=== PATIENT | female | born 1950 | race Caucasian/White ===

== ENCOUNTER → 2017-10-20 | Outpatient (CLI) | payer OTHER | LOC: FIMAGING 10:49 | DX: M81.0 Age-related osteoporosis without current pathological fracture (principal) ==

== ENCOUNTER 2018-02-03 07:57 | Observation (INO) | payer OTHER ==
[~2018-02-03 07:57] MED LIST: cefOXitin SODIUM 2 GM in NS 100 ML IV ONE
[2018-02-03] MEDS ORDERED: LR 1,000 ML IV ONE (08:36)
[2018-02-03] MEDS ORDERED: LIDOCAINE 1% 2 ML INJ ID PRN (08:36)
[2018-02-03 08:55] LABS: PLATELET COUNT 267 10^3/uL (150-400)
[2018-02-03] MEDS ORDERED: BUPIVACAINE 0.5% 30 ML SDV ONE (09:27)
[2018-02-03] MEDS ORDERED: ceFAZolin 1 GM/5 ML SYR ONE (09:27)
[2018-02-03] MEDS ORDERED: HEPARIN 1000 UNIT/1 ML MDV ONE (09:27)
--- NOTE | 2018-02-03 10:31 | PDHPUP ---
History & Physical Update H&P update statement: This history and physical update is based on an assessment of the patient which was completed after admission or registration (within 24 hours), but prior to the surgery/procedure. H&P update: H&P reviewed & patient examined, no change in patient's condition since H&P completed
--- NOTE | 2018-02-03 12:00 | PDANEPAE ---
ANE History of Present Illness cholelithiasis s/f lap nida ANE Past Medical History - Cardiovascular History Hx Hypertension: No Hx Arrhythmias: No Hx Chest Pain: No Hx Coronary Artery / Peripheral Vascular Disease: No Hx CHF / Valvular Disease: No Hx Palpitations: No - Pulmonary History Hx COPD: No Hx Asthma/Reactive Airway Disease: No Hx Recent Upper Respiratory Infection: No Hx Oxygen in Use at Home: No Hx Sleep Apnea: No Sleep Apnea Screening Result - Last Documented: Negative - Neurologic History Hx Cerebrovascular Accident: No Hx Seizures: No Hx Dementia: No - Endocrine History Hx Diabetes: No - Renal History Hx Renal Disorders: No - Liver History Hx Hepatic Disorders: No Hepatic History Comment: RUQ pain r/t gall stones - Neurological & Psychiatric Hx Hx Neurological and Psychiatric Disorders: No - Cancer History Hx Cancer: No - Congenital Disorder History Hx Congenital Disorders: No - GI History Hx Gastrointestinal Disorders: Yes Gastrointestinal History Comment: irritable bowel. hx of luz's esophagus prior to hiatal hernia being repaired - Other Health History Other Health History: osteoporosis. right rotator cuff tear - Chronic Pain History Chronic Pain: Yes (back) - Surgical History Prior Surgeries: kyphoplasty, T7-T9, 11/2017. fundoplication for hiatal hernia , 04/2017. open abdominal surgery in [place] w/appendectomy ANE Review of Systems Review of Systems: - Exercise capacity METS (RN): 5 METS ANE Patient History - Allergies Allergies/Adverse Reactions: codeine Allergy (Verified 02/03/18 08:48) nausea - Home Medications Home medications: home medication list seen and reviewed Home Medications: Cyclobenzaprine [Flexeril 10 MG (*)] PRN 02/01/18 [Last Taken Unknown] Multi-Opal Liquid 02/01/18 [Last Taken 01/20/18] Tramadol HCl PRN 02/01/18 [Last Taken Unknown] - NPO status NPO Status: no food or drink >8 hours NPO Since - Liquids (Date): 02/02/18 NPO Since - Liquids (Time): 22:00 NPO Since - Solids (Date): 02/02/18 NPO Since - Solids (Time): 23:00 - Anes Hx Anes Hx: no prior problems - Smoking Hx Smoking Status: Never smoked - Alcohol Use Alcohol Use: Rarely - Family Anes Hx Family Anes Hx: none Family Hx Anesthesia Complications: none ANE Labs/Vital Signs - Labs Result Diagrams: 02/03/18 08:45 02/02/18 08:45 - Vital Signs Blood Pressure: 105/66 Heart Rate: 73 Respiratory Rate: 19 O2 Sat (%): 96 Height: 160.02 cm Weight: 58.967 kg ANE Physical Exam - Airway Neck exam: FROM Mallampati Score: Class 2 Mouth exam: normal dental/mouth exam - Pulmonary Pulmonary: no respiratory distress - Cardiovascular Cardiovascular: regular rate and rhythym - ASA Status ASA Status: II ANE Anesthesia Plan Anesthesia Plan: general endotracheal anesthesia
[2018-02-03] MEDS ORDERED: MIDAZOLAM 2 MG/2 ML VIAL IVP ONE ×2 (12:30→14:24)
[2018-02-03] MEDS ORDERED: MIDAZOLAM 2 MG/2 ML VIAL ONE (12:32)
[2018-02-03] MEDS ORDERED: IOTHALAMATE MEG (CONRAY) 50 ML VIAL IV ONE (12:33)
[2018-02-03] MEDS ORDERED: PROPOFOL/EMULSION 500 MG/50 ML BOTTLE IV ONE (12:37)
[2018-02-03] MEDS ORDERED: fentaNYL 100 MCG/2 ML INJ ONE ×4 (12:37→14:18)
[2018-02-03] MEDS ORDERED: ROCURONIUM 50 MG/5 ML VIAL ONE ×3 (12:38→12:42)
[2018-02-03] MEDS ORDERED: ONDANSETRON 4 MG/2 ML VIAL ONE (12:42)
[2018-02-03] MEDS ORDERED: LIDOCAINE 2% 100 MG/5 ML SYR ONE (12:42)
[2018-02-03] MEDS ORDERED: DEXAMETHASONE 4 MG/ML VIAL ONE ×2 (12:42)
[2018-02-03] MEDS ORDERED: ONDANSETRON 4 MG/2 ML VIAL IVP PRN (13:34)
[2018-02-03] MEDS ORDERED: NALOXONE HCL 0.4 MG/ML INJ IVP PRN (13:34)
[2018-02-03] MEDS ORDERED: SUGAMMADEX SODIUM 200 MG/2 ML VIAL IVP ONE (13:50)
--- NOTE | 2018-02-03 14:06 | POSTOPPROG ---
Post Op Note Date of Operation: 02/03/18 Surgeon: Patrick Mustafa [place] Reporter: [place] Anesthesiologist: Warm Anesthesia: GET(General Endotracheal) Pre-op Diagnosis: Cholelithiasis, epigastric pain, elevated LFTs Post-op Diagnosis: same, choledocholithiasis Indication: Pain Procedure: Lap nida with grams Findings: Numerous stones in gallbladder, many lodged in common duct Inf/Abcess present in the surg proc area at time of surgery?: No Depth: Organ Space EBL: Minimal Specimen(s): Gallbladder
[2018-02-03] MEDS ORDERED: HYDROmorphONE/DILAUDID 1 MG/ML INJ IVP PRN (14:07)
[2018-02-03] MEDS ORDERED: PROMETHAZINE HCL 25 MG/ML INJ ONE (14:18)
--- NOTE | 2018-02-03 14:20 | POSTANESTH ---
Post Anesthetic Evaluation Cardiovascular Status: Normal, Stable Respiratory Status: Normal, Stable Level of Consciousness/Mental Status: Can Participate in Eval Pain Control: Inadeq, Add Tx Required Nausea/Vomiting Control: Adequate, Prn Tx Ordered Complications Possibly Related to Anesthesia: None Noted
[2018-02-03] MEDS: fentaNYL 100 MCG/2 ML INJ IVP PRN ×3 (14:21→15:09)
[2018-02-03] MEDS: PROMETHAZINE HCL 25 MG/ML INJ IVP PRN ×2 (14:21→15:10)
[2018-02-03] MEDS ORDERED: oxyCODONE IR 5 MG TAB PO PRN (16:56)
[2018-02-03] MEDS ORDERED: ACETAMINOPHEN 650 MG/20.3 ML UDCUP PO PRN (16:57)
[2018-02-03] MEDS: KETOROLAC 15 MG/1 ML SDV IVP SCH (17:07)
[2018-02-03] MEDS: NS 1,000 ML IV SCH (17:07)
[2018-02-03] MEDS: ONDANSETRON 4 MG/2 ML VIAL IVP PRN (17:24)
--- NOTE | 2018-02-03 18:30 | SOAPPROG ---
GERONIMO Progress Note Assessment/Plan: Assessment: POSTOP LAP CHOLY AND CHOLANGIOGRAPHY/DOING WELL/AFEBRILE/NONICTERIC RISKS AND OPTIONS FULLY DISCUSSED Plan: WILL NEED ERCP IN THE A.M. 02/03/18 18:29 Objective: Vital Signs Temp Pulse Resp BP Pulse Ox 36.6 C 61 16 145/65 H 98 02/03/18 17:59 02/03/18 17:59 02/03/18 17:59 02/03/18 17:59 02/03/18 17:59 Laboratory Results 02/03/18 08:45 02/02/18 08:45 02/02/18 02/03/18 02/04/18 05:59 05:59 05:59 Intake Total 1750 Output Total 20 Balance 1730 ICD10 Worksheet Patient Problems: Problems Problem Status Onset Cholelithiasis with choledocholithiasis Acute - ICD10 Problem Qualifiers (1) Cholelithiasis with choledocholithiasis
[2018-02-04] MEDS: KETOROLAC 15 MG/1 ML SDV IVP SCH ×3 (01:19→12:58)
[2018-02-04] MEDS: ONDANSETRON 4 MG/2 ML VIAL IVP PRN ×2 (01:22→11:41)
[2018-02-04] MEDS: NS 1,000 ML IV SCH ×2 (01:26→14:30)
[2018-02-04] MEDS ORDERED: SIMETHICONE 80 MG TAB CHEW PO PRN (05:34)
--- NOTE | 2018-02-04 05:49 | GCON ---
CHIEF COMPLAINT: Choledocholithiasis. HISTORY OF PRESENT ILLNESS: I have been asked to see this very pleasant 67-year-old woman in consult ation by Dr. Mustafa for evaluation of choledocholithiasis and abnormal LFTs. The patient was admitted by Dr. Mustafa for a cholecystectomy. She presented with cholelithiasis and elevated liver function t ests. She had been having symptoms about 10 days prior to admission with burning epigastric pain quita t was triggered by eating. She reports that she ate a salad with caesar dressing. She had an additi onal attack that was extremely painful. She went on a clear liquid diet with some improvement in her symptoms. She had an abdominal ultrasound that revealed numerous gallstones as well as sludge. She was noted to have elevated liver function tests. She was admitted for surgery for cholecystectomy. She underwent cholecystectomy today with the finding of multiple choledocholithiasis on intraoperati ve cholangiogram. I am asked to see the patient for further evaluation. PAST MEDICAL HISTORY: Remarkable for hypertension, Mi's esophagus. PAST SURGICAL HISTORY: Remarkable for kyphoplasty, Gisell fundoplication, right shoulder surgery. MEDICATIONS: None prior to admission. SOCIAL HISTORY: Patient is a nonsmoker, is an occupational nurse at the [employer]. ALLERGIES: Codeine. FAMILY HISTORY: Negative as it pertains to chief complaint. REVIEW OF SYSTEMS: Negative for 10 systems other than mentioned in the HPI. PHYSICAL EXAM: VITAL SIGNS: 154/65, pulse of 63, respiratory rate 14, 95% sat on 2 L, 36.6. GENERA L: Very pleasant woman, in no acute distress, lying in bed. HEENT: Normocephalic, atraumatic. EOM I. NECK: Supple. No cervical adenopathy. No thyromegaly. Mucous membranes moist. LUNGS: Clear. CARDIAC: Normal S1, S2 without murmur. ABDOMEN: Benign, soft, slight tenderness to palpation in the epigastrium. No hepatosplenomegaly. EXTREMITIES: Without clubbing, cyanosis, edema. NEURO: N onfocal. SKIN: Warm, dry, intact. PSYCH: Alert and oriented x3 with normal affect. LABORATORY DATA: Hemoglobin of 12.2, hematocrit 36.3. Serum chemistries: Serum sodium 137, potassi um 4.4, chloride of 107, CO2 24, BUN of 11, creatinine 0.7, AST 103, ALT of 97. Fluoroscopy: Intrao perative fluoroscopy/cholangiogram. "Probable filling defects in the distal common bile duct suspici ous for choledocholithiasis." IMPRESSION: A 67-year-old woman with cholelithiasis status post cholecystectomy and associated abnor mal liver function tests and intraoperative cholangiogram consistent with choledocholithiasis. RECOMMENDATIONS: N.p.o. after midnight. Proceed with therapeutic ERCP, sphincterotomy, stone extrac tion tomorrow. We will follow with you. /[id number]/MODL
--- NOTE | 2018-02-04 09:39 | ASMTCMCOM ---
CM Note CM Note Notes: CM reviewed pt's chart for d/c planning. Pt is a 67 y/o female admitted due to having gallstones and an elevated LFT requiring her to have her gall bladder removed. Pt had a cholecystectomy and is recovering. Pt is employed as an occupational nurse at the [employer]. No CM needs identified. CM to follow for changes. D/C Plan: Anticipate independent. Date Signed: 02/04/2018 09:39 AM Electronically Signed By:Lucia Simms
[2018-02-04] MEDS ORDERED: IOTHALAMATE MEG (CONRAY) 50 ML VIAL IV ONE (09:40)
[2018-02-04] MEDS ORDERED: GLUCAGON HCL 1 MG VIAL ONE (09:40)
[2018-02-04] MEDS ORDERED: INDOMETHACIN 50 MG SUPP PR ONE (09:40)
[2018-02-04] MEDS ORDERED: REMIFENTANIL HCL 1 MG VIAL ONE (10:12)
[2018-02-04] MEDS ORDERED: PROPOFOL/EMULSION 500 MG/50 ML BOTTLE IV ONE (10:12)
[2018-02-04] MEDS ORDERED: DEXAMETHASONE 4 MG/ML VIAL ONE (10:12)
[2018-02-04] MEDS ORDERED: ROCURONIUM 50 MG/5 ML VIAL ONE (10:12)
[2018-02-04] MEDS ORDERED: MIDAZOLAM 2 MG/2 ML VIAL ONE (10:14)
--- NOTE | 2018-02-04 10:40 | SOAPPROG ---
SOAP Progress Note Assessment/Plan: Assessment: 67 y/o F s/p lap nida with grams. Found to have several stones lodged in common duct. She is on the schedule to have ERCP today with GI. S: Doing well overall. Pain controlled. Denies nausea/vomiting. Passing gas. Tolerated clears last night O: Alert Afebrile RRR No increased WOB Abdomen: soft, nontender, incisions cdi 02/04/18 10:38 Objective: Vital Signs Temp Pulse Resp BP Pulse Ox 36.8 C 80 12 142/71 H 97 02/04/18 08:00 02/04/18 08:00 02/04/18 08:00 02/04/18 08:00 02/04/18 08:00 Laboratory Results 02/03/18 08:45 02/02/18 08:45 02/03/18 02/04/18 02/05/18 05:59 05:59 05:59 Intake Total 1822 495 Output Total 670 Balance 7959 495 ICD10 Worksheet Patient Problems: Problems Problem Status Onset Cholelithiasis with choledocholithiasis Acute
--- NOTE | 2018-02-04 10:40 | PDANEPAE ---
ANE Past Medical History - Cardiovascular History Hx Hypertension: No Hx Arrhythmias: No Hx Chest Pain: No Hx Coronary Artery / Peripheral Vascular Disease: No Hx CHF / Valvular Disease: No Hx Palpitations: No - Pulmonary History Hx COPD: No Hx Asthma/Reactive Airway Disease: No Hx Recent Upper Respiratory Infection: No Hx Oxygen in Use at Home: No Hx Sleep Apnea: No Sleep Apnea Screening Result - Last Documented: Negative - Neurologic History Hx Cerebrovascular Accident: No Hx Seizures: No Hx Dementia: No - Endocrine History Hx Diabetes: No Hypothyroid: No Hyperthyroid: No Obesity: no - Renal History Hx Renal Disorders: No - Liver History Hx Hepatic Disorders: No Hepatic History Comment: RUQ pain r/t gall stones - Neurological & Psychiatric Hx Hx Neurological and Psychiatric Disorders: No - Cancer History Hx Cancer: No - Congenital Disorder History Hx Congenital Disorders: No - GI History Hx Gastrointestinal Disorders: Yes Gastrointestinal History Comment: irritable bowel. hx of luz's esophagus prior to hiatal hernia being repaired - Other Health History Other Health History: osteoporosis. right rotator cuff tear. upper back spasms - Chronic Pain History Chronic Pain: Yes (back) - Surgical History Prior Surgeries: kyphoplasty, T7-T9, 11/2017. fundoplication for hiatal hernia , 04/2017. open abdominal surgery in [place] w/appendectomy. lap cholecystectomy ANE Review of Systems Review of Systems: - Exercise capacity METS (RN): 5 METS ANE Patient History - Allergies Allergies/Adverse Reactions: codeine Allergy (Verified 02/03/18 08:48) nausea - Home Medications Home Medications: Cyclobenzaprine [Flexeril 10 MG (*)] 10 mg PO TID PRN 02/03/18 [Last Taken Unknown] Herbals/Supplements -Info Only 1 ea PO DAILY 02/03/18 [Last Taken Unknown] traMADol [Ultram 50 mg (*)] 50 - 100 mg PO Q6H PRN 02/03/18 [Last Taken Unknown] - NPO status NPO Since - Liquids (Date): 02/02/18 NPO Since - Liquids (Time): 22:00 NPO Since - Solids (Date): 02/02/18 NPO Since - Solids (Time): 23:00 - Anes Hx Anes Hx: no prior problems - Smoking Hx Smoking Status: Never smoked - Alcohol Use Alcohol Use: Rarely - Family Anes Hx Family Anes Hx: none Family Hx Anesthesia Complications: none ANE Labs/Vital Signs - Labs Result Diagrams: 02/03/18 08:45 02/02/18 08:45 - Vital Signs Blood Pressure: 142/71 Heart Rate: 80 Respiratory Rate: 12 O2 Sat (%): 97 Height: 160.02 cm Weight: 58.967 kg ANE Physical Exam - Airway Neck exam: FROM Mallampati Score: Class 1 (upper caps) - Pulmonary Pulmonary: clear to auscultation - Cardiovascular Cardiovascular: regular rate and rhythym - ASA Status ASA Status: II ANE Anesthesia Plan Anesthesia Plan: general endotracheal anesthesia
[2018-02-04] MEDS ORDERED: ONDANSETRON 4 MG/2 ML VIAL ONE ×2 (10:44→11:37)
[2018-02-04] MEDS ORDERED: fentaNYL 100 MCG/2 ML INJ ONE (10:47)
[2018-02-04] MEDS ORDERED: ACETAMINOPHEN 500 MG TAB PO PRN (11:00)
[2018-02-04] MEDS ORDERED: ONDANSETRON 4 MG/2 ML VIAL IVP PRN (11:00)
[2018-02-04] MEDS ORDERED: NALOXONE HCL 0.4 MG/ML INJ IVP PRN (11:00)
[2018-02-04] MEDS ORDERED: fentaNYL 100 MCG/2 ML INJ IVP PRN (11:00)
[2018-02-04] MEDS ORDERED: SUGAMMADEX SODIUM 200 MG/2 ML VIAL IVP ONE (11:14)
--- NOTE | 2018-02-04 11:21 | GIREPORT ---
[facility] Surgical Services - Endoscopy Department Patient Name: Timothy Lambert Procedure Date: 02/04/2018 9:56 AM Patient Type: Inpatient Attending MD/ ER Physician: Kee Trinh MD Procedure: ERCP Indications: Bile duct stone(s), Common bile duct stone(s), Elevated liver enzymes, CBD stones seen on IOC at time of Cholecystectomy Providers: Kee Trinh MD Medicines: General Anesthesia Complications: No immediate complications. Description of Procedure: After obtaining informed consent, the scope was passed under direct vis ion. Throughout the procedure, the patient's blood pressure, pulse, and oxyg en saturations were monitored continuously. The Duodenoscope was introduce d through the mouth, and advanced to the duodenum and used to inject cont rast into the bile duct. The ERCP was accomplished without difficulty. The patient tolerated the procedure well. Findings: The major papilla was normal. Placement of a long 0.035 inch Soft Jagwi re into the biliary tree was attempted. This passed successfully. The comm on hepatic duct contained multiple stones, the largest of which was 7 mm i n diameter. A cholecystectomy had been performed. A 9 mm biliary sphincterotomy was made with a traction (standard) sphincterotome using ERBE electrocautery. The sphincterotomy oozed blood. The biliary tree was sw ept with a 15 mm balloon and basket starting at the bifurcation. All stones were removed. Estimated Blood Loss: Estimated blood loss: none. Post Op Diagnosis: - The major papilla appeared normal. - The patient has had a cholecystectomy. - A biliary sphincterotomy was performed. - Choledocholithiasis was found. Complete removal was accomplished by biliary sphincterotomy and balloon extraction. - The biliary tree was swept with no residual stones. Recommendation: - Clear liquid diet. - Check liver enzymes (AST, ALT, alkaline phosphatase, bilirubin) in th e morning. - Thank you for allowing me to participate in the care of your patient. Attending Participation: I personally performed the entire procedure. Kee Trinh MD Kee Trinh MD 02/04/2018 11:20:50 AM This report has been signed electronicallyStbeltran Trinh MD Number of Addenda: 0 Note Initiated On: 02/04/2018 9:56 AM [email or web address]
--- NOTE | 2018-02-04 11:50 | POSTANESTH ---
Post Anesthetic Evaluation Cardiovascular Status: Similar to Pre-Op Cond Respiratory Status: Normal, Stable Level of Consciousness/Mental Status: Can Participate in Eval Pain Control: Adequate, Prn Tx Ordered Nausea/Vomiting Control: Adequate, Prn Tx Ordered Complications Possibly Related to Anesthesia: None Noted
[2018-02-04] MEDS ORDERED: MAG HYDROX/AL HYDROX/SIMETH 30 ML UDCUP PO ONE (12:00)
[2018-02-04 15:52] VITALS: BP 136/63
--- NOTE | 2018-02-05 22:05 | GOP ---
DATE OF OPERATION: 02/03/2018 SURGEON: Patrick Mustafa MD COMMERCIAL DRIVER: Alexus Rosenthal NP ANESTHESIA: General endotracheal anesthesia. PREOPERATIVE DIAGNOSIS: Symptomatic cholelithiasis. POSTOPERATIVE DIAGNOSIS: Cholelithiasis plus choledocholithiasis. PROCEDURE PERFORMED: Laparoscopic cholecystectomy with operative cholangiography. FINDINGS: The patient was found to have an inflamed gallbladder with multiple stones. On cholangiog jody, she was found to have multiple stones in the common duct, although there was flow of bile into the duodenum and the common duct was somewhat dilated. ESTIMATED BLOOD LOSS: Negligible. No complications. She was taken to recovery room in good condition. DESCRIPTION OF PROCEDURE: The patient was taken to the operating room where she received satisfactor y general endotracheal anesthesia. She was placed in supine position, prepped and draped in the usua l sterile fashion. A periumbilical incision was made. A Veress needle inserted. Pneumoperitoneum w as established. A trocar was introduced. Laparoscope introduced. Good visualization was obtained. Three other trocars were placed in the upper abdomen under direct vision. The gallbladder was eleva vibha up. Adhesions were taken down. The entire gallbladder could then be exposed. The cystic triang le was carefully dissected free. A good clear view was established. The cystic artery and cystic du ct were isolated. The cystic duct was then hemoclipped proximally. An incision was made in the duct . A cholangiogram catheter was introduced through a separate stab incision and then introduced throu gh the cystic duct opening. It was secured in place and cholangiography was done with a C-arm, which demonstrated 4 or 5 stones in the distal portion of the bile duct. There was still some flow into t he duodenum. The duct was somewhat enlarged. Cholangiogram catheter was removed. The duct was mult iply hemoclipped and then divided, as was the cystic artery, with care to avoid injury to the common bile duct. The peritoneum of the gallbladder was incised. The gallbladder was dissected free from t he bed and hepatic fossa, and extracted through the upper midline port site. The wound was irrigated . Hemostasis was assured. Trocars were removed under direct vision. Trocar sites were closed with 0 Vicryl for the fascia, 4-0 Monocryl subcuticular stitch for the skin. All layers infiltrated with 0.5% Marcaine. /[id number]/MODL
== END 2018-02-04 17:12 | disposition home or self-care (01) ==
LOC: FSGY 07:57 → F3E 14:06
PROVIDERS: ADMIT Surgery; ATTEND Surgery
DX: K80.60 Calculus of gallbladder and bile duct with cholecystitis, unspecified, without obstruction (principal); I10 Essential (primary) hypertension; K22.70 Barrett's esophagus without dysplasia
CPT/HCPCS: 43264; 47563; 76001; 88304; J0690; J0694; J1100; J1610; J1885; J2001; J2250; J2405; J2550; J2704; J3010; Q9961